=== PATIENT | male | born 1935 | race Caucasian/White ===

== ENCOUNTER 2018-07-16 18:57 | Outpatient (CLI) ==
[2018-07-16 19:13] VITALS: BMI 25.8
== END 2018-07-16 19:02 | disposition critical access hospital (66) ==
LOC: AMBL 18:57
PROVIDERS: ATTEND Internal Medicine
DX: R42 Dizziness and giddiness (principal); R11.10 Vomiting, unspecified; I10 Essential (primary) hypertension

== ENCOUNTER 2018-07-16 19:08 | Emergency (ER) ==
[2018-07-16 19:13] VITALS: TEMP 98.1; BMI 25.8
--- NOTE | 2018-07-16 19:21 | ED.PDOC ---
General ED Provider: Dr. RUIZ YEE Chief Complaint: Dizziness Stated Complaint: HTN,onset of hoarseness,swallowing difficulty Time Seen by Physician: 19:20 Mode of Arrival: Walk-In Information Source: Patient Exam Limitations: No limitations Nursing and Triage Documentation Reviewed and Agree: Yes Does patient meet sepsis criteria?: No System Inflammatory Response Syndrome: Not Applicable Sepsis Protocol: For patient's 13 years and over: Temp is 96.8 and below OR 101 and greater Pulse >90 BPM Resp >20/minute Acutely Altered Mental Status Are patient's symptoms suggestive of a new infection, such as: -Pneumonia -Skin, Soft Tissue -Endocarditis -UTI -Bone, Joint Infection -Implantable Device -Acute Abdominal Infection -Wound Infection -Meningitis -Blood Stream Catheter Infection -Unknown EENT Complaint Exam - Ear Complaint/Exam Onset/Duration: today became lightheaded,hoatrse Symptoms Are: Resolved Timing: Intermittent Initial Severity: Mild Current Severity: None Character: Reports: Dizzy Aggravating: Reports: None Alleviating: Reports: None Associated Signs and Symptoms: Reports: Sore throat Vesicles to External Pinna: No Vesicles to Tragus: No TMJ Tenderness: None Mastoid Tenderness: None Tragal Tenderness: None Differential Diagnoses: Otitis Media, Barotrauma Review of Systems - Review Of Systems Constitutional: Reports: No symptoms Eyes: Reports: No symptoms Ears, Nose, Mouth, Throat: Reports: No symptoms Respiratory: Reports: No symptoms Cardiac: Reports: No symptoms GI: Reports: No symptoms : Reports: No symptoms Musculoskeletal: Reports: No symptoms Skin: Reports: No symptoms Neurological: Reports: No symptoms Endocrine: Reports: No symptoms Hematologic/Lymphatic: Reports: No symptoms All Other Systems: Reviewed and Negative Past Medical History - Past Medical History Previously Healthy: Yes Endocrine: Reports: None Cardiovascular: Reports: None Respiratory: Reports: None Hematological: Reports: None Gastrointestinal: Reports: None Genitourinary: Reports: None Neuro/Psych: Reports: None Musculoskeletal: Reports: None Cancer: Reports: None - Surgical History General Surgical History: Reports: None - Family History Family History: Reports: None - Social History Smoking Status: Former smoker Hx Substance Use: No Alcohol Screening: Occasionally Physical Exam - Physical Exam Appearance: Well-appearing Ill-appearing: None Pain Distress: None Eyes: NEAL ENT: Ears normal Neck: Supple Respiratory: Airway patent Cardiovascular: RRR, Pulses normal GI/: Soft, Nontender Musculoskeletal: Normal strength, ROM intact, No edema Skin: Warm, Dry Neurological: Sensation intact Psychiatric: Affect appropriate Critical Care Note - Critical Care Note Total Time (mins): 0 Course - Course Hematology/Chemistry: 07/16/18 19:33 07/16/18 19:33 Vital Signs: Temp Pulse Resp BP Pulse Ox 07/16/18 19:09 98.1 F 70 20 187/70 H 95 Departure - Departure Time of Disposition: 20:47 Disposition: HOME SELF-CARE Discharge Problem: Swallowing difficulty Instructions: Vertigo (ED) Condition: Good Pt referred to PMD for follow-up: Yes IPMP verified?: No Additional Instructions: Take BP meds at homew as prescribed by PCP.Consider nitri SL for breakthrough HTN and swallowing difficulty. Allergies/Adverse Reactions: Allergies No Known Allergies Allergy (Unverified 07/16/18 19:14) Home Medications: Ambulatory Orders 1 [Unobtainable] 07/16/18 Disposition Discussed With: Patient, Family
--- NOTE | 2018-07-16 20:31 | CT ---
EXAM: CT scan brain without contrast HISTORY: Dizziness COMPARISON: None. FINDINGS: Contiguous axial images obtained from skull base to the convexities without contrast utili zing 5-mm collimation. Sagittal and coronal reconstructions were imaged and reviewed. The ventricle s and CSF spaces are prominent compatible with age appropriate atrophy. Periventricular hypodensity is is noted compatible with chronic microvascular disease. There is a right-sided remote lacunar inf arct within the right external capsule. Atherosclerotic changes are seen involving the bilateral jose david tebral and cavernous internal carotid arteries. Paranasal sinuses and mastoid air cells are clear. IMPRESSION: No acute intracranial findings.
[2018-07-16] MEDS ORDERED: SODIUM CHLORIDE 1,000 ML IV STA (21:03)
[2018-07-16 21:58] VITALS: BP 192/80
[2018-07-16] MEDS ORDERED: VALIUM PO STA (22:03)
--- NOTE | 2018-07-16 22:26 | CT ---
Exam: CT of the chest without contrast History: Unsteady gait, swallowing difficulty Technique: [address] of the chest without intravascular contrast FINDINGS: Pleural thickening and pleural calcification on the left in the lateral mid chest. Focal pleural thickening in the right lateral mid chest without pleural calcification. There is no pleural fluid. No pulmonary parenchymal abnormality. Atherosclerotic calcification of the aorta without an eurysm. No pathologic lymph node enlargement or abundance of the mediastinum. No esophagus filling defect is seen. There may be trace esophagus fluid. No acute chest wall abnormality is seen. Multi level bridging anterior osteophytes of the thoracic spine. No acute findings of the upper abdomen. Impression: 1. No acute findings of the chest 2. Pleural thickening and calcifications on the left. Pleural thickening on the right with somewhat nodular character and absence of calcifications. Consider follow-up chest CT. 3. No esophageal filling defects are seen.
[2018-07-16] MEDS ORDERED: NITROSTAT SL STA (23:18)
== END 2018-07-17 00:15 | disposition home or self-care (01) ==
LOC: ED 19:08
DX: R13.10 Dysphagia, unspecified (principal); R42 Dizziness and giddiness; I10 Essential (primary) hypertension; R49.0 Dysphonia; J02.9 Acute pharyngitis, unspecified
CPT/HCPCS: 36415; 80053; 85025; 93005; 93010; 99283

== ENCOUNTER 2018-07-17 04:06 | Outpatient (CLI) ==
[2018-07-16 19:13] VITALS: BMI 25.8
== END 2018-07-17 04:23 | disposition short-term general hospital (02) ==
LOC: AMBL 04:06
PROVIDERS: ATTEND Emergency Medicine
DX: R42 Dizziness and giddiness (principal); S51.012A Laceration without foreign body of left elbow, initial encounter; W19.XXXA Unspecified fall, initial encounter; R29.6 Repeated falls